=== PATIENT | male | born 1995 | race Caucasian/White ===

== ENCOUNTER 2025-03-13 18:44 | Emergency (ER) | payer SELFPAY | END 2025-03-13 19:10 | disposition home or self-care (01) | LOC: NAV ERS 18:44 | DX: S61.211A Laceration without foreign body of left index finger without damage to nail, initial encounter (principal); F17.210 Nicotine dependence, cigarettes, uncomplicated; W26.8XXA Contact with other sharp object(s), not elsewhere classified, initial encounter; Y99.0 Civilian activity done for income or pay | CPT/HCPCS: 12001; 99282 ==